=== PATIENT | male | born 1935 | race Caucasian/White ===

== ENCOUNTER 2016-12-01 16:15 | Inpatient (IN) | payer MEDICARE, OTHER ==
[~2016-12-01] VITALS: Ht 175.3 cm; Wt 72.6 kg
--- NOTE | ~2016-12-01 | CON ---
PATIENT'S NAME: KARMA DENG [facility] AGE: 81 Y [address] ROOM: [id number] [place] [id number] LOCATION: GPCU ADMIT DATE: 12/01/2016 Consultation DISCHARGE DATE: FAMILY PHYSICIAN: NASRIN MONTE MD ATTENDING PHYSICIAN: MAXI JONES DATE OF CONSULTATION: 12/02/2016 REQUESTING PHYSICIAN: Maxi Jones MD. REASON FOR CONSULTATION: End-stage renal failure, patient on hemodialysis. 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 Normally dialyzes Sunday, Sunday, and Sunday through his left upper arm AV fistula. The patient went for a routine dialysis treatment yesterday, and after dialysis, he was noted to have pain and blue discoloration of his left hand. He actually had cold, clammy hand and feeble pulse. He was sent to the emergency room from where he got admitted to the hospital. Dr. Betancourt did evaluate him, and the patient was taken to the OR, and he had ligation of his left upper arm AV fistula after dissection of the cephalic vein. 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 Did have return of radial and ulnar signal of the wrist right after the procedure. Postoperatively, the patient was noted to be bradycardic. He was thereafter diagnosed with hypothyroidism by TSH. I have been asked to see him because he is a dialysis patient. REVIEW OF SYSTEMS: GENERAL: He denies any fever or chills. He is tired. HEENT: Denies any sore throat or sinus congestion. CARDIOVASCULAR: Denies any chest pain or dyspnea on exertion. RESPIRATORY: Denies any shortness of breath, cough, or wheezing. GASTROINTESTINAL: Denies any abdominal pain, nausea, or vomiting. GENITOURINARY: Denies any dysuria. MUSCULOSKELETAL: He has some discomfort in his left hand. SKIN: Denies any rash or pruritus. IMMUNOLOGIC: Denies any allergies or hay fever. PAST MEDICAL HISTORY: End-stage renal failure, on hemodialysis; dementia; diabetes mellitus; coronary artery disease; hypertension; pneumonia; hyperlipidemia; depressive illness; hypothyroidism; rectal bleed; and chronic constipation. PATIENT'S NAME: KARMA DENG [facility] AGE: 81 Y [address] ROOM: [place] [address] LOCATION: GPCU ADMIT DATE: 12/01/2016 Consultation DISCHARGE DATE: FAMILY PHYSICIAN: NASRIN MONTE MD ATTENDING PHYSICIAN: MAXI JONES PAST SURGICAL HISTORY: 1. Left upper arm primary brachiocephalic AV fistula placement in August 2011. 2. Ligation of left upper arm AV fistula. 3. Appendectomy. 4. Coronary artery bypass grafting. 5. Inguinal hernia repair. 6. Left heart catheterization with stent placement in 2006. ALLERGIES: NO KNOWN DRUG ALLERGIES. MEDICATIONS: 1. Aspirin 81 mg a day. 2. Lipitor 80 mg a day. 3. Calcium acetate 667 mg 4 tablets 3 times a day with food. 4. Klonopin 0.5 mg twice a day. 5. Plavix 75 mg a day. 6. Colace 100 mg every day. 7. Lexapro 20 mg a day. 8. [place]-3 fatty acid 1000 mg every day. 9. Lactulose 20 g every day. 10. Levothyroxine 175 mcg a day. 11. Namenda 10 mg q.h.s. 12. Metoprolol tartrate 6.25 mg twice a day. 13. Nitrostat 0.4 mg sublingual p.r.n. chest pain. 14. Protonix 40 mg a day. 15. Ranexa 500 mg every day. 16. MiraLAX p.r.n. 17. Acetaminophen p.r.n. 18. Midodrine 10 mg 2 three days a week on dialysis days. 19. Claritin 10 mg every day. 20. Amiodarone 200 mg a day. 21. Imdur 15 mg a day. SOCIAL HISTORY: The patient lives at home with his who is his primary care provider. He has [id number] history of smoking, quit smoking in 2008. No history of alcohol or illicit drugs. FAMILY HISTORY: No family history of kidney disease or dialysis. PHYSICAL EXAMINATION: GENERAL APPEARANCE: An 81-year-old white male, sitting in the hospital chair, PATIENT'S NAME: KARMA DENG [facility] AGE: 81 Y [address] ROOM: [place] [address] LOCATION: GPCU ADMIT DATE: 12/01/2016 Consultation DISCHARGE DATE: FAMILY PHYSICIAN: NASRIN MONTE MD ATTENDING PHYSICIAN: MAXI JONES not in acute distress. VITAL SIGNS: Temperature 97.7, pulse is 64, systolic blood pressure 94 and diastolic 52. HEENT: Head is normocephalic. Pupils are round and equal. Normal eyelids, and pale conjunctivae. Oral cavity clear. Loss of tooth. Moist mucosa. NECK: Trachea is central. No thyromegaly. Unable to evaluate jugular venous pulsation. CARDIAC: Heart sounds are audible in all the areas without any gallop or murmur. There is no pericardial rub. Pulses regular in rhythm. LUNGS: Bilaterally clear to auscultate anteriorly. No intercostal retraction. ABDOMEN: Soft and nontender. EXTREMITIES: The patient has warm left upper extremity, and he has positive radial pulse. NEUROLOGICAL: He is alert and grossly nonfocal. LABORATORY DATA: WBC 7.1, hemoglobin 13.3, hematocrit 47.2, and platelet count of 215. Glucose 87, BUN 23, creatinine 4.6, sodium 140, potassium 4.2, chloride 101, bicarbonate 32, and calcium 9.2. Magnesium 2.7. GFR of 12. TSH is 23.2. ASSESSMENT: 1. 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 2. End-stage renal failure, on hemodialysis. 3. Diabetes mellitus. 4. Hypertension. 5. Dementia. 6. Coronary artery disease. 7. Hypothyroidism. PLAN: The patient does not have any dialysis access at this time. We will have to refer him to Interventional Radiology for putting in a tunneled dialysis catheter Sunday morning prior to his dialysis. I would like to thank Dr. Jones for allowing me to participate in this patient's care. M MD PETRA STEVEN/gonzalez PATIENT'S NAME: KARMA DENG [facility] AGE: 81 Y [address] ROOM: [place] [address] LOCATION: GPCU ADMIT DATE: 12/01/2016 Consultation DISCHARGE DATE: FAMILY PHYSICIAN: NASRIN MONTE MD ATTENDING PHYSICIAN: MAXI JONES /[id number] d: 12/02/16 1336 t: 12/20/16 1547, CONSULTATION REPORT
--- NOTE | ~2016-12-01 | DS ---
PATIENT'S NAME: KARMA DENG [facility] AGE: 81 Y [address] ROOM: [address] [place], [place] [address] LOCATION: GPCU ADMIT DATE: 12/01/2016 Discharge Summary DISCHARGE DATE: 12/05/2016 FAMILY PHYSICIAN: Fabien Felix MD ATTENDING PHYSICIAN: Maxi Morales PRIMARY DIAGNOSES: 1. Left upper extremity ischemia. 2. Bradycardia. 3. Hypotension. 4. Severe hypothyroidism. CHRONIC CONDITIONS: Include end-stage renal disease, restlessness, and dementia. PRINCIPAL PROCEDURES: Done for the patient include left upper extremity AV graft ligation and tunnel catheter placement. LABS ON ADMISSION: Troponin less than 0.040, CPK 27. On admission, WBC was 7.1, was stable throughout hospital stay and prior to discharge, it was 7.4; H and H on admission was 13.3/47.2, prior to discharge was 12.5/43.3; platelet was 215, prior to discharge was 225 and was stable. Sodium on admission was 146, remained stable throughout the hospital stay; potassium on admission was 4.2, prior to discharge was 4.1; creatinine was 4.6 on admission, prior to discharge was 6.0; bicarb was 32, prior to discharge was 27. Phosphorus was 2.4. TSH was 23.2, free T4 was 1.1. CK-MB was 1.5. MICROBIOLOGY: None was indicated. RADIOLOGY: Chest x-ray is reported as cardiac silhouette is within normal limits. Lungs are clear with no focal infiltrate, pleural effusion, or pneumothorax. Insertion of an ultrasound-guided placement of right internal jugular vein tunneled dialysis catheter. HOSPITAL COURSE: For history of present illness, please take a look at H and P, which was done by Dr. Morales. The patient was admitted to inpatient into PCU. On the first day of admission, the patient had his left upper extremity AV graft ligated by Dr. Betancourt. Procedure was well tolerated by the patient without any intraoperative or postop complication. During his hospital stay, he did also develop some bradycardia for which Cardiology was consulted on and after the patient was reviewed by Cardiology, they stopped his metoprolol and reduced his amiodarone and also his Namenda as well was stopped and they felt possibly the bradycardia may also be secondary to his hypothyroidism, so his Synthroid was also titrated upwards by the Hospitalist team. With progression in his hospital stay, his bradycardia improved and he subsequently got his PATIENT'S NAME: KARMA DENG [facility] AGE: 81 Y [address] ROOM: [id number] [place], [place] [address] LOCATION: GPCU ADMIT DATE: 12/01/2016 Discharge Summary DISCHARGE DATE: 12/05/2016 FAMILY PHYSICIAN: Fabien Felix MD ATTENDING PHYSICIAN: Maxi Morales dialysis catheter placed, on which day he had his dialysis done. During his dialysis, which is unusual for the patient, he was less lethargic and hypotensive which resolved following the use of midodrine. A day after his dialysis, the patient continued to remain medically stable and he was discharged back to [facility]. DISCHARGE INSTRUCTIONS: Include the patient is to follow with Dr. Betancourt in the next 2-3 weeks for vein mapping and also is to follow with Dr. Knott in the next 2 weeks. MEDICATIONS ON DISCHARGE: Include, 1. Tylenol 650 mg p.o. daily. 2. Tylenol 325 mg p.o. every 6 hours p.r.n. 3. Amiodarone 100 mg p.o. daily, dose change. 4. Aspirin 81 mg p.o. daily. 5. Lipitor 80 mg p.o. q.h.s. 6. Calcium acetate 667 mg, 2001 mg p.o. 3 times daily with meals. 7. Klonopin 0.5 mg p.o. twice daily. 8. Plavix 75 mg p.o. daily. 9. Colace 100 mg p.o. twice daily. 10. Lexapro 30 mg p.o. daily. 11. Imdur 50 mg p.o. daily. 12. Lactulose 20 mg p.o. daily. 13. Claritin 10 mg p.o. daily. 14. Midodrine 20 mg p.o. 3 times daily 3 days per week. 15. Fish oil 1 g p.o. daily. 16. Synthroid 200 mcg p.o. daily, dose change. 17. Protonix 40 mg p.o. daily. 18. MiraLAX 17 g p.o. daily. 19. Ranexa 500 mg p.o. daily. 20. Milk of magnesium hydroxide 30 mL p.o. q.24 hours p.r.n. 21. Nitrostat 0.4 mg sublingual every 15 minutes. 22. Kayexalate 30 mg p.o. daily p.r.n. 23. Dulcolax 10 mg rectally q.24 hours. 24. Temple 5/325 two tablets p.o. every 4 hours p.r.n. MD BHAVNA MARINELLI/gonzalez /[id number] d: 12/06/16 0154 t: 12/06/16 1725, DISCHARGE SUMMARY
--- NOTE | ~2016-12-01 | OR ---
PATIENT'S NAME: KARMA DENG [facility] AGE: 81 Y [address] ROOM: [address] [address] [facility] AD[facility] DATE: 12/01/2016 OR/Procedure Report DISCHARGE DATE: FAMILY PHYSICIAN: NASRIN MONTE MD ATTENDING PHYSICIAN: VILMA JONES SURGEON: Greg Betancourt MD SENIOR DB2 SYSTEMS PROGRAMMER: DATE OF PROCEDURE: 12/01/2016 PREOPERATIVE DIAGNOSIS: Left arm steal syndrome secondary to AV fistula. GEODETIC COMPUTATOR: Bhaskar Herman. ANESTHESIA: General. ESTIMATED BLOOD LOSS: 5 mL. OPERATIVE FINDINGS: Return of radial and ulnar signal of the wrist. DESCRIPTION OF PROCEDURE: The patient was brought to the operating room, placed supine on the operative table. Prepped and draped in a sterile manner. Preoperative time-out was performed. We made a transverse incision 2 cm proximally. Antecubital fossa dissected down. Incised the fascia. Dissected out the cephalic vein in a 360-degree fashion. Ligated it with a single 3-0 silk tie. We used Doppler signal to check the return of the radial and ulnar signal which was present. We then irrigated the wound and then reapproximated the skin with interrupted 4-0 nylons. The patient tolerated the procedure well, transferred to recovery room and back to the floor. GREG BETANCOURT MD FKM/modl /[id number] d: 12/02/16 0104 t: 12/04/16 1519, OPERATIVE SUMMARY
--- NOTE | ~2016-12-01 | HP ---
PATIENT'S NAME: KARMA DENG [facility] AGE: 81 Y [address] ROOM: [place] [address] LOCATION: GPCU ADMIT DATE: 12/01/2016 History & Physical DISCHARGE DATE: FAMILY PHYSICIAN: NASRIN MONTE MD ATTENDING PHYSICIAN: VILMA JONES DATE OF SERVICE: PRIMARY CARE PHYSICIAN: Ankur Herman MD CHIEF COMPLAINT: Left upper extremity fistula problems. HISTORY OF PRESENT ILLNESS: This is an 81-year-old male with a history of end-stage renal disease, currently on hemodialysis. The patient has a left upper extremity fistula. The patient was undergoing dialysis today, and there were some problems with the fistula. The patient then had developed left arm steal syndrome secondary to the AV fistula. The patient was then brought to [facility] and was taken to the OR by Dr. Betancourt. Dr. Betancourt consulted the hospitalist team after left arm fistula ligation for medical management. At the time of my examination on Med-Surg unit, the patient is status post left arm fistula ligation. He is currently comfortably resting. He denies any chest pain or shortness of breath, denies any lightheadedness. He denies any abdominal pain, diarrhea, or constipation. He denies any pain in his left upper extremity. Sensation is intact bilateral upper extremities. The patient also has good strength bilateral upper extremities. He denies any other complaints at this point of time. REVIEW OF SYSTEMS: A 10-point review of systems was done and was otherwise negative except as mentioned above. HOME MEDICATIONS: Per MAR. FAMILY HISTORY: Mother had unknown cancer. PAST SURGICAL HISTORY: 1. Five-vessel CABG. 2. Appendectomy. [facility] AGE: 81 Y [address] ROOM: [place] [address] LOCATION: GPCU ADMIT DATE: 12/01/2016 History & Physical DISCHARGE DATE: FAMILY PHYSICIAN: NASRIN MONTE MD ATTENDING PHYSICIAN: VILMA JONES 3. Inguinal hernia repair. 4. Tonsillectomy and adenoidectomy. 5. ECT x5. 6. Left upper arm AV fistula placement with ligation today. PAST MEDICAL HISTORY: 1. History of TIA after CABG. 2. Dementia. 3. CAD, status post CABG. 4. Hypertension. 5. Dyslipidemia. 6. Congestive heart failure. 7. Ischemic heart disease. 8. Arthritis. 9. History of GI bleed. 10. GERD. 11. Bipolar depression. SOCIAL HISTORY: [id number]-dpls smoking history reported. He is a former smoker, quit in 2004. No alcohol history reported. PHYSICAL EXAMINATION: VITAL SIGNS: Temperature 98.0, pulse 59 and irregular, respirations 18, blood pressure 135/71, saturation 96% on 2 L nasal cannula oxygen. GENERAL: The patient is resting comfortably. He is alert and oriented x3. Follows all commands. Moves all extremities. HEENT: Head: Normocephalic, atraumatic. Pupils are equal, round, reactive to light. Extraocular muscles are intact. Nares clear. Throat clear. Mucous membranes moist. NECK: Supple. No nuchal rigidity. HEART: Irregular rhythm. LUNGS: Clear to auscultation bilaterally. ABDOMEN: Soft, nontender, nondistended. Bowel sounds present. EXTREMITIES: No clubbing, cyanosis, or edema. Left upper extremity has an AV fistula. Sensation intact bilateral upper and bilateral lower extremities. NEUROLOGIC: The patient is alert and oriented x3. Follows all commands. Moves all extremities. Sensation intact bilateral upper and lower extremities. Left upper extremity is warm to touch. Strength 4+/5 bilateral upper and lower extremities. DIAGNOSTIC STUDIES: Chest x-ray was done and showed no acute cardiopulmonary abnormality. EKG was done and showed sinus bradycardia with a first-degree AV block and rate of 55 beats per minute. CPK 27, troponin I less than 0.04. CBC showed a white PATIENT'S NAME: KARMA DENG [facility] AGE: 81 Y [address] ROOM: [id number] [place], [place] [address] [facility] AD[facility] DATE: 12/01/2016 History & Physical DISCHARGE DATE: FAMILY PHYSICIAN: NASRIN MONTE MD ATTENDING PHYSICIAN: VILMA JONES count of 7.1, hemoglobin 13.3, hematocrit 47.2, platelets 215. BMP showed sodium 140, potassium 4.2, chloride 101, bicarb 32, BUN 20, creatinine 4.6, glucose 87, calcium 9.2, mag 2.7, anion gap 11.2, GFR 12. PT 10.2, INR 1.0, and PTT 27. CK-MB 1.5. Free T4 1.1, TSH 23.2. ASSESSMENT AND PLAN: An 81-year-old male presenting with left upper extremity fistula problem and steal syndrome. 1. Left upper extremity fistula problem and steal syndrome. The patient was taken to the OR by Dr. Betancourt for left upper extremity fistula ligation. The patient is status post procedure and is resting comfortably currently. Further plan per Dr. Betancourt. 2. History of hypertension. I will continue him on his home medications. 3. History of diabetes mellitus. Continue home medication. 4. History of congestive heart failure. Continue home medication. 5. History of paroxysmal atrial fibrillation. I will place him on telemetry for now. EKG has been done. Monitor for now. 6. History of dementia. 7. Dyslipidemia. Continue statin. 8. Ischemic cardiomyopathy. The patient is on Plavix. Continue Plavix. 9. Depression. Continue Lexapro. 10. Hypothyroidism. Continue levothyroxine. 11. Deep vein thrombosis prophylaxis per Vascular Surgery. SCD to legs currently, the patient is not on long-term anticoagulation. CODE STATUS: DNR/DNI discussed with the patient and family at the time of admission. VILMA JONES MD MT/gonzalez /[id number] D: [id number] T: [id number] HISTORY & PHYSICAL
--- NOTE | ~2016-12-01 | ER ---
PATIENT'S NAME: KARMA DENG [facility] AGE: 81 Y [address] ROOM: [place] [address] LOCATION: [facility] ADMIT DATE: 12/01/2016 ER/Outpatient Report DISCHARGE DATE: FAMILY PHYSICIAN: NASRIN MONTE MD ATTENDING PHYSICIAN: VILMA JONES Admission date and time documented in the medical record. I saw the patient at 1620 hours. CHIEF COMPLAINT: Left hand and forearm pain and coldness. HISTORY OF PRESENT ILLNESS: The patient is an 81-year-old male, who was about [facility] through dialysis when he developed a cold left forearm and hand along with accompanying pain. The patient has a fistula in the left upper arm. He does have end-stage renal failure, on hemodialysis on Sunday, Sunday, and Sunday. He does have peripheral vascular disease along with coronary artery disease. Denies any chest pain, shortness of breath. No lightheadedness, dizziness, syncope, or near syncope. No fall or trauma. No recent colds, coughs, flus, fever, chills, or sweats. No headache, eyes, ears, nose, throat, neck, or spine pain. No abdominal pain, nausea, vomiting, diarrhea, or urinary incontinence. No stool incontinence. Other than the left forearm and hand, he has no other joint or muscle swelling, redness, or pain. No skin eruptions or rash. The patient does have a history of hypothyroidism, tnm-sulhtse-[id number] diabetes mellitus. He has a history of TIA, CVA, but no seizure disorder. No psychosis but does have anxiety, depression, and some dementia. HOME MEDICATIONS: See attached medication list. ALLERGIES: NONE. SOCIAL HISTORY: Nonsmoker, nondrinker. SIGNIFICANT PAST MEDICAL HISTORY: Atherosclerotic ischemic heart disease; coronary artery disease; dementia; anxiety; depression; paroxysmal atrial fibrillation; CVA; TIA; hypertension; congestive heart failure; end-stage renal failure, on hemodialysis, on Sunday, Sunday, and Sunday; remote tobacco abuse; peripheral vascular disease; dyslipidemia; hypothyroidism; benign prostatic hypertrophy; lung nodule. OPERATIONS: PATIENT'S NAME: KARMA DENG [facility] AGE: 81 Y [address] ROOM: [place] [address] LOCATION: [facility] ADMIT DATE: 12/01/2016 ER/Outpatient Report DISCHARGE DATE: FAMILY PHYSICIAN: NASRIN MONTE MD ATTENDING PHYSICIAN: VILMA JONES Appendectomy, cardiac catheterization with PTCA and stenting; cholecystectomy, 6-vessel coronary bypass graft, inguinal herniorrhaphy. REVIEW OF SYSTEMS: All systems reviewed by me are negative with the exception of those discussed in the history of present illness. PHYSICAL EXAMINATION: VITAL SIGNS: Blood pressure 100/48, pulse 82, respirations 18, temperature 98 tympanic, O2 saturation on room air is 93%. HEAD: Normocephalic. EYES, EARS, NOSE, THROAT: Clear. Mucous membranes moist. NECK: Negative. SPINE: Negative. LUNGS: Clear. HEART: Regular. ABDOMEN: Soft, nontender. Good bowel tones. EXTREMITIES: The patient has a cold left forearm and hand. At the fistula and above, the arm is warm. Decreased pulses. Decreased capillary refill. SKIN: Otherwise, skin is clear. NEUROVASCULAR: Appears to be intact. IMPRESSION: Cold left forearm and hand with pain. The patient has a proximal fistula for hemodialysis. Etiology undetermined whether there is some type of clot or arterial abnormality. PLAN: I did talk with Dr. Bennett, civil engineer helper, who had called Dr. Betancourt, vascular surgeon. Dr. Betancourt is coming to the emergency room to see the patient. We will proceed on his recommendations. MD RUSTAM LOMBARDO/modl /[id number] d: 12/01/16 2327 t: 12/02/16 1814, OUTPATIENT REPORT
--- NOTE | ~2016-12-01 | CON ---
PATIENT'S NAME: KARMA DENG [facility] AGE: 81 Y [address] ROOM: [place] [address] LOCATION: GPCU ADMIT DATE: 12/01/2016 Consultation DISCHARGE DATE: FAMILY PHYSICIAN: NASRIN MONTE MD ATTENDING PHYSICIAN: VILMA JONES DATE OF CONSULTATION: 12/02/2016 REASON FOR CARDIOLOGY CONSULT: Bradycardia. HISTORY OF PRESENT ILLNESS: This is an 81-year-old male who normally follows cardiology care with Dr. Nick Knott. He is currently admitted under the Hospitalist Service as well as Vascular Surgery after his left hand experienced ischemia due to an AV fistula complication. Specifically, he experienced left arm steal syndrome due to his AV fistula, and he is currently status post a left arm fistula ligation. He has a previous history of coronary artery disease with a remote coronary artery bypass grafting in 1996 as well as coronary artery stenting post CABG. Most recent stent placed 8 years ago. He also has a history of paroxysmal atrial fibrillation, on amiodarone. He has had end-stage renal disease for the last 5 years and undergoes hemodialysis. He also has a history of dementia. At the time of this consult, he is resting comfortably in bed without complaints of presyncope or syncope, chest pain, palpitations, shortness of breath, dyspnea on exertion, nausea, vomiting, diarrhea, or fever. PAST MEDICAL HISTORY: 1. Coronary artery disease. 2. Paroxysmal atrial fibrillation. 3. End-stage renal disease. 4. Dementia. 5. Hypertension. 6. Dyslipidemia. 7. Hypothyroidism. 8. Rbkr-ay-ywznbykr pulmonary hypertension. PAST SURGICAL HISTORY: 1. Coronary artery bypass grafting in 1996. 2. Coronary artery stenting, last time being 8 years ago. 3. Appendectomy. 4. Inguinal hernia repair. 5. Tonsillectomy. 6. Adenoidectomy. 7. ECT treatments for depression. PATIENT'S NAME: KARMA DENG [facility] AGE: 81 Y [address] ROOM: [place] [address] LOCATION: GPCU ADMIT DATE: 12/01/2016 Consultation DISCHARGE DATE: FAMILY PHYSICIAN: NASRIN MONTE MD ATTENDING PHYSICIAN: VILMA JONES 8. Left arm fistula creation in 2010. FAMILY HISTORY: The patient's mother had a history of cancer. SOCIAL HISTORY: The patient is a former cigarette smoker. He smoked for a total of 40 years and quit smoking in 2004. He denies alcohol or illicit drug use. CURRENT MEDICATIONS: 1. Aspirin 81 mg p.o. daily. 2. Colace 100 mg p.o. twice daily. 3. Amiodarone 200 mg p.o. daily. 4. Enulose 30 mL p.o. daily. 5. Fish oil 1000 mg p.o. daily. 6. Imdur 15 mg p.o. daily. 7. Klonopin 0.5 mg p.o. twice daily. 8. Levothyroxine 175 mcg p.o. daily. 9. Lexapro 30 mg p.o. daily. 10. Lipitor 80 mg p.o. daily in the evening. 11. MiraLax 17 g p.o. daily. 12. Namenda 10 mg p.o. daily in the evening. 13. PhosLo 2001 mg p.o. 3 times daily. 14. Plavix 75 mg p.o. daily. 15. Protonix 40 mg p.o. daily. 16. Ranexa 500 mg p.o. daily. 17. Tylenol 650 mg p.o. daily. MEDICATION ALLERGIES: No known medication allergies. REVIEW OF SYSTEMS: Pertinent positive review of systems listed in the HPI. All other review of systems evaluated and negative. PHYSICAL EXAMINATION: VITAL SIGNS: Temperature 97.7, pulse 59, respirations 24, blood pressure 126/60, and O2 saturation 93% on room air. The patient weighs 72 kg. SKIN: [place], warm, and dry. EYES: Sclerae are clear. No xanthelasma. ENT: Oral mucosa is pink and moist. NECK: No jugular venous distention or carotid bruits. CHEST: Respirations are even and unlabored. Lungs are clear to auscultation. HEART: Regular rate and rhythm. Normal S1 and S2. There is a slight irregularity at times. No murmurs, rubs, or gallops. PATIENT'S NAME: KARMA DENG [facility] AGE: 81 Y [address] ROOM: [address] [address] [facility] ADMIT DATE: 12/01/2016 Consultation DISCHARGE DATE: FAMILY PHYSICIAN: NASRIN MONTE MD ATTENDING PHYSICIAN: VILMA JONES ABDOMEN: Soft and nontender. MUSCULOSKELETAL: Equal muscle strength to upper and lower extremities bilaterally against resistance. EXTREMITIES: Peripheral pulses palpable. Of note, he has a strong 2+ left- sided brachial pulse, but does have a noted weak radial pulse, but his hand is warm. No clubbing, cyanosis, or edema. PSYCHIATRIC: Alert and oriented. Mood and affect are appropriate. IMPRESSION AND PLAN: Per Dr. Izaguirre. Bradycardia. Possibly a combination of hypothyroidism, amiodarone, metoprolol, and Namenda. The patient does not need a pacemaker at this time. It is unclear when his last levothyroxine dose was adjusted. We do recommend holding his amiodarone at this time. His troponin level is negative, and recommend checking a TSH level. We will continue to monitor, evaluate, and treat as appropriate. Thank you for this consult. The care of this patient will be assumed again by Dr. Nick Knott on Sunday, December 04, but we will continue to follow him through the weekend and treat as appropriate. Thank you for allowing [facility] to interact in the care of this patient. NATALIA LORENZANA APRN FOR PO-ROSALVA IZAGUIRRE MD DEH/gonzalez /[id number] d: 12/02/16 1510 t: 12/27/16 0923, CONSULTATION REPORT
[~2016-12-01 16:15] MED LIST changes: -AMIODARONE HCL100 MG PO; -IMDUR30 MG PO; -LEVOTHROID (S200 MCG PO; -MIRALAX17 GM PO
[2016-12-01] MEDS ORDERED: AMIODARONE HCL100 MG PO (21:26)
[2016-12-01] MEDS ORDERED: IMDUR30 MG PO (21:29)
[2016-12-01] MEDS ORDERED: MIRALAX17 GM PO (21:33)
[2016-12-01] MEDS ORDERED: DULCOLAX10 MG R (21:39)
[2016-12-01] MEDS ORDERED: TYLENOL325 MG PO (21:43)
[2016-12-01] MEDS ORDERED: MILK OF MA400 MG/5 M PO (21:43)
[2016-12-01 23:02] LABS: BASOPHIL # 0.1 K/uL (0.0-0.2); BASOPHIL % 1.7 %; EOSINOPHIL # 0.2 K/uL (0.0-0.5); EOSINOPHIL % 2.3 %; HEMOGLOBIN 13.3 g/dL (11.0-16.0); IMMATURE GRANULOCYTE % 0.6 %; LYMPHOCYTE # 1.3 K/uL (0.8-4.0); LYMPHOCYTE % 17.9 %; MCHC 28.2 gm/dL (32.0-36.5); MONOCYTE # 0.9 K/uL (0.0-1.0); MONOCYTE % 12.9 %; MPV 9.6 fl (9.4-12.4); NEUTROPHIL # (ANC) 4.6 K/uL (1.4-9.0); NEUTROPHIL % 64.6 %; NRBC % 0 /100WBC (0-0.00); PLATELET COUNT 215 K/uL (150-450); RDW-CV 16.2 % (11.9-14.6); WBC 7.1 K/uL (4.0-11.0)
[2016-12-01 23:03] LABS: HEMATOCRIT 47.2 % (33.0-50.0); MCH 26.8 pg (27.0-34.0); RBC 4.97 M/uL (3.50-5.50)
[2016-12-01 23:12] LABS: PROTIME 10.2 SECONDS (9.6-11.1); PTT 27 SECONDS (25-32)
[2016-12-01 23:13] LABS: ANION GAP 11.2 (10.0-19.0); CALCIUM 9.2 mg/dL (8.5-10.5); POTASSIUM 4.2 mMol/L (3.7-5.1)
[2016-12-01 23:18] LABS: CREATININE 4.6 mg/dL (0.6-1.3); MAGNESIUM 2.7 mg/dL (1.3-2.6)
[2016-12-02 00:59] LABS: CPK 27 IU/L (35-332)
--- NOTE | 2016-12-02 01:28 | NUR ---
Recieved a transfer patient from [facility] [place] 0045. Eliza ERICKSON gave report to Clint ERICKSON. Initial vitals were BP 172/74, HR 54, temp 97.7 resp 16 sat 96% on 2L.
--- NOTE | 2016-12-02 02:06 | NUR ---
Patient arrived from postop via cart after having a ligation of fistula in left arm. Patient alert and oriented but very tired. IV in left forearm infusing NS at 10ml/hr. Initial vitals WNL with the exception of a heart rate of 59. Post op nurse stated that he had been bradycardic post operatively. Patient reports significant pain only when left arm is touched. Admitting physician is Dr. Betancourt.
--- NOTE | 2016-12-02 02:19 | NUR ---
Transfered patient to PCU room 7947. Report given to Clint Arce RN.
--- NOTE | 2016-12-02 02:20 | NUR ---
Notified patient's via telephone of patient's transfer to PCU, room 4530.
--- NOTE | 2016-12-02 05:21 | NUR ---
Significant Event: A/O x3. Forgetful at times. Afebrile. Pain in left arm when palpated. VSS on 2L. SBP 120-140s. HRs in 50s. Atropine at bedside if needed for HRs <30. Left arm red with some open sores. Dressing on anterior upper left arm with drainage marked. Doppler left arm pulse. Anuria. Follow up: Possible new dialysis line placement on Sunday.
[2016-12-02 08:12] LABS: CPK 20 IU/L (35-332)
--- NOTE | 2016-12-02 16:27 | NUR ---
Significant Event: Patient A/O x 3. Very pleasant and cooperative with cares. Full lift. Uses oqq-hr-qcigh lift at [facility]. VSS on RA. HR 50-60's. SBP 94-130's. Denies pain except when left arm moved. RAC PIV SL. at bedside throughout the day. 1000 ml fluid restriction. Follow up: Continue as per plan of care. Plan for tunneled dialysis line placement on Sunday and possible new fistula placement. Monitor heart rates. Dressing to Left upper arm can be changed tomorrow.
--- NOTE | 2016-12-03 04:55 | NUR ---
Significant events: Pt A/O to place and self. No complaints of pain. VSS. HR 40-60's. L) upper arm site CDI, shadow drainage marked. 1+ pulse in affected arm, red/pinkish in color. Repositioned Q2H. No urine output, pt states is normal. Slept most of shift. Atropine at bedside for HR <30. Plan for tunneled line placement soon.
--- NOTE | 2016-12-03 17:05 | NUR ---
Significant Event: Patient is often only oriented to person. Knows he is in [place] at times. Full lift. Uses ruf-bg-peche lift at longterm. VSS on RA throughout the day. SBP 121-169. HR's 40-50's. Stopped amiodarone. L)upper arm dressing changed and now C/D/I. Pulses and color better in that arm. RAC PIV SL. Denies pain except when touching right arm. PT/OT worked with patient today. Follow up: Plan for tunneled dialysis line tomorrow. Continue as per plan of care.
--- NOTE | 2016-12-04 02:57 | NUR ---
Significant Event:Patient alert, oriented to self. Disoriented to time, sometimes disorient to place. Up with full lift. No c/o pain. Left arm reddish in color. Pulse palpable to left radius. 1000ml fluid restrict. Anuria. Dialysis line probable placement today and then to dialysis. Bradycardic with hr's right around 50. Some htn with sbp of 164. PIV to rt ac, SL. Follow up:Diaylsis line placement today.
[2016-12-04 11:56] LABS: BASOPHIL # 0.1 K/uL (0.0-0.2); BASOPHIL % 1.4 %; EOSINOPHIL # 0.1 K/uL (0.0-0.5); EOSINOPHIL % 1.9 %; HEMATOCRIT 43.3 % (33.0-50.0); HEMOGLOBIN 12.5 g/dL (11.0-16.0); IMMATURE GRANULOCYTE % 0.3 %; LYMPHOCYTE # 1.6 K/uL (0.8-4.0); LYMPHOCYTE % 21.7 %; MCH 26.5 pg (27.0-34.0); MCHC 28.9 gm/dL (32.0-36.5); MCV 91.9 fl (83.0-98.0); MONOCYTE # 0.6 K/uL (0.0-1.0); MONOCYTE % 8.7 %; MPV 10.2 fl (9.4-12.4); NEUTROPHIL # (ANC) 4.9 K/uL (1.4-9.0); NRBC % 0 /100WBC (0-0.00); PLATELET COUNT 225 K/uL (150-450); RBC 4.71 M/uL (3.50-5.50); RDW-CV 15.9 % (11.9-14.6); WBC 7.4 K/uL (4.0-11.0)
[2016-12-04 12:12] LABS: ALBUMIN 2.6 gm/dL (3.5-5.0); ANION GAP 12.1 (10.0-19.0); PHOSPHORUS 2.4 mg/dL (2.5-4.9); POTASSIUM 5.1 mMol/L (3.7-5.1)
[2016-12-04 12:14] LABS: CALCIUM 11.2 mg/dL (8.5-10.5)
--- NOTE | 2016-12-04 15:39 | NUR ---
Introduced self and role of care management to pt's . She states he is at [facility] and plan is to return when ready. She states they take him to dialysis M-W- at 1100. She did ask if he would qualify for a skilled medicare stay and I explained it looks like he is observation status but will need to look at the chart before I can confirm everything. She did understand. Will continue to follow. =
--- NOTE | 2016-12-04 20:26 | NUR ---
Significant Event: Patient Alert to self and location. Unable to state month, will say that he is in a building but unaware he is in the hospital. Full lift transfer. Patient off the unit this shift for a scheduled procedure, placement of a dialysis catheter. Patient in dialysis after procedure, returned to the unit at 1650. VS stable on arrival. Patient had 1.5L removed during dialysis. Takes pills 1 at a time with water. Patient cooperative. at bedside. Possil home 12/05/16.
--- NOTE | 2016-12-05 04:10 | NUR ---
Significant Event: VSS, PT AFEBRILE. RESTING IN BED AND REPOSITIONED NEEDED. PT RESTLESS TONIGHT AND MOVING AROUND IN BED. 3 SIDE RAILS UP, AT BEDSIDE. STATES THAT THIS IS THE MOST RESTLESS HE'S BEEN AFTER HAVING DIALYSIS. PT ABLE TO STATE FIRST AND LAST NAME AND THAT IS ALL. CAN ANSWER SOME QUESTIONS APPROPRIATELY BUT IS MOSTLY CONFUSED. BENADRYL GIVEN AT BEDTIME. DIALYSIS CATHETER DRESSING CHANGED. CONTINUES ON RA WITH SATS IN THE UPPER 90'S. PT POSSIBLY GOING BACK TO [facility] TODAY. Follow up:
[2016-12-05 10:14] LABS: CALCIUM 10.2 mg/dL (8.5-10.5)
[2016-12-05 10:16] LABS: ANION GAP 14.1 (10.0-19.0); POTASSIUM 4.1 mMol/L (3.7-5.1)
--- NOTE | 2016-12-05 10:45 | NUR ---
I got a call from nursing pt can return back to [facility] today. I called [employer] and faxed orders and time set up for 1200. I the ncalled and she asked about his restlessness and I explained I have not seen him but will have her talk with nursing. She stated she will be up to see him so not to worry. I called Annie and she stated he is fine and has not been restless this am and will update when she gets here.
--- NOTE | 2016-12-05 13:00 | NUR ---
Patient Alert to self and Birthday, unable to state current month or year. Patient full lift transfer for nursing personnel. Up in the chair this shift. VS stable, on RA. No complaints of pain this shift. Takes medication 1 at a time with sips of water. Last BM 12/04/16. Patient on a low sodium diet with 1000 ml fluid restriction. Pulses to L) arm present. L) arm warm. Patient able to wiggle fingers, and has movement to the left upper extremity. Patient has new dialysis catheter to the R) chest. Dressing to be changed this PM. Patient pleasant and cooperative with cares.
--- NOTE | 2016-12-05 20:29 | NUR ---
PATIENT ALERT TO SELF, CAN STATE AND THAT HE IS AT THE HOSPITAL. VS STABLE, ON RA. FULL LIFT TRANSFER. PATIENT DISMISSED TO [facility] AT 1230. PRISON TRANSPORT PROVIDED FOR PATIENT. TRANSFER PACKET PROVIDED FOR FACILITY. PATIENT LEFT THE UNIT VIA WHEELCHAIR WITH [employer], ACCOUNTANT SYSTEMS AND . ALL BELONGINGS WITH . PATIENT PLEASANT AND COOPERATIVE WITH CARES.
[2016-12-25] MEDS ORDERED: LEVOTHROID (S200 MCG PO (10:32)
[2016-12-25] MEDS ORDERED: NORCO 5-325 TA1 EACH PO (10:36)
== END 2016-12-05 12:30 | DRG 252 ==
LOC: GMED 16:15 → GMSU 19:42 → GPCU 19:42 → GMSU 19:42 → GPCU 12-02 01:02
PROVIDERS: Family Medicine; Hospitalist; Internal Medicine Nephrology; ADMIT Internal Medicine
PROC: 05LF0ZZ Occlusion of Left Cephalic Vein, Open Approach (ICD-10-PCS; principal; 2016-12-01)
DX: T82.898A Other specified complication of vascular prosthetic devices, implants and grafts, initial encounter (principal); N18.6 End stage renal disease; I13.2 Hypertensive heart and chronic kidney disease with heart failure and with stage 5 chronic kidney disease, or end stage renal disease; I25.810 Atherosclerosis of coronary artery bypass graft(s) without angina pectoris; I25.9 Chronic ischemic heart disease, unspecified; F03.90 Unspecified dementia, unspecified severity, without behavioral disturbance, psychotic disturbance, mood disturbance, and anxiety; I50.9 Heart failure, unspecified; I25.5 Ischemic cardiomyopathy; I48.0 Paroxysmal atrial fibrillation; E78.5 Hyperlipidemia, unspecified; K21.9 Gastro-esophageal reflux disease without esophagitis; F32.89 Other specified depressive episodes; E03.9 Hypothyroidism, unspecified; E11.9 Type 2 diabetes mellitus without complications; Z79.82 Long term (current) use of aspirin; Z87.891 Personal history of nicotine dependence; Z90.49 Acquired absence of other specified parts of digestive tract; Z79.899 Other long term (current) drug therapy
CPT/HCPCS: C1750; J0461; J0690; J1644; P9047

== ENCOUNTER → 2016-12-01 | Outpatient (CLI) | payer MEDICARE, OTHER ==
[~2016-12-01] MED LIST: 0.9% SODIUM CHLO3 ML INH; 8 HOUR650 MG PO; ALBUTEROL2.5 MG/0.5 INH; AMIODARONE HCL100 MG PO; ASPIR 8181 MG PO; BENZONATATE200 MG PO; CLARITIN10 MG PO; COLACE100 MG PO; DULCOLAX10 MG R; ENULOSE10 GM/15 M PO; FISH OIL 1,0001 EACH PO; GUAIFENESIN-CODE5 ML PO; IMDUR30 MG PO; KLONOPIN0.5 MG PO; LEVAQUIN500 MG; LEVOTHROID (S200 MCG PO; LEVOTHROID (SY25 MCG PO; LEXAPRO20 MG PO; LIPITOR80 MG PO; LOPRESSOR25 MG PO; MIDODRINE HCL10 MG PO; MIDODRINE HCL5 MG PO; MILK OF MA400 MG/5 M PO; MIRALAX17 GM PO; MUCINEX DM ER1 EAC1 PO; NAMENDA10 MG PO; NITROSTAT0.4 MG SL; NORCO 5-325 TA1 EACH PO; NORVASC2.5 MG PO; PHOSLO667 MG PO; PLAVIX75 MG PO; PROTONIX40 MG PO; PROVENTIL OR V6.7 GM INH; RANEXA ER500 MG PO; SPS15 GM/60 M PO; TYLENOL325 MG PO; ZOFRAN8 MG PO
== END | disposition disaster alternative care site (69) ==
LOC: GAMB 16:02
DX: R53.1 Weakness (principal); I96 Gangrene, not elsewhere classified; R20.2 Paresthesia of skin
CPT/HCPCS: A0425; A0429

== ENCOUNTER → 2016-12-19 | Outpatient (CLI) | payer MEDICARE, OTHER ==
[~2016-12-19] MED LIST changes: +AMIODARONE HCL100 MG PO; +IMDUR30 MG PO; +LEVOTHROID (S200 MCG PO; +MIRALAX17 GM PO
[2016-12-19 13:46] LABS: HEMATOCRIT 42.5 % (33.0-50.0); HEMOGLOBIN 12.2 g/dL (11.0-16.0); MCH 25.4 pg (27.0-34.0); MCHC 28.7 gm/dL (32.0-36.5); MCV 88.5 fl (83.0-98.0); MPV 10.4 fl (9.4-12.4); RBC 4.8 M/uL (3.50-5.50); RDW-CV 15.7 % (11.9-14.6); WBC 7.2 K/uL (4.0-11.0)
[2016-12-19 14:02] LABS: ALK PHOS 84 IU/L (33-138); ALT 14 IU/L (12-78); AST 18 IU/L (10-40); TOTAL PROTEIN 7.2 g/dL (6.0-8.4)
[2016-12-19 14:08] LABS: TOTAL BILIRUBIN 0.4 mg/dL (0.0-1.5)
== END ==
LOC: LCNC 13:39
PROVIDERS: Internal Medicine Interventional Cardiology
DX: I95.3 Hypotension of hemodialysis (principal); Z79.899 Other long term (current) drug therapy

== ENCOUNTER → 2016-12-27 | Outpatient (CLI) | payer MEDICARE, OTHER ==
[2016-12-27 19:20] LABS: BASOPHIL # 0.1 K/uL (0.0-0.2); BASOPHIL % 0.9 %; EOSINOPHIL # 0.2 K/uL (0.0-0.5); EOSINOPHIL % 2.3 %; HEMATOCRIT 41.3 % (33.0-50.0); HEMOGLOBIN 11.6 g/dL (11.0-16.0); IMMATURE GRANULOCYTE % 0.5 %; LYMPHOCYTE # 1.2 K/uL (0.8-4.0); LYMPHOCYTE % 14.2 %; MCH 24.3 pg (27.0-34.0); MCHC 28.1 gm/dL (32.0-36.5); MCV 86.6 fl (83.0-98.0); MPV 10.7 fl (9.4-12.4); NEUTROPHIL # (ANC) 6.2 K/uL (1.4-9.0); NEUTROPHIL % 71.1 %; NRBC % 0 /100WBC (0-0.00); PLATELET COUNT 219 K/uL (150-450); RBC 4.77 M/uL (3.50-5.50); RDW-CV 15.9 % (11.9-14.6); WBC 8.7 K/uL (4.0-11.0)
[2016-12-27 19:27] LABS: INR - (THERAPEUTIC) 0.96 (0.92-1.07); PROTIME 10.1 SECONDS (9.8-11.4)
== END ==
PROVIDERS: Internal Medicine Nephrology
DX: Z99.2 Dependence on renal dialysis (principal); N18.6 End stage renal disease; I47.2 Ventricular tachycardia; A41.89 Other specified sepsis

== ENCOUNTER 2016-12-28 10:19 | Inpatient (IN) | payer MEDICARE, OTHER ==
[~2016-12-28] VITALS: Ht 152.4 cm; Wt 76.7 kg
--- NOTE | ~2016-12-28 | HP ---
PATIENT'S NAME: KARMA DENG [facility] AGE: 81 Y [address] ROOM: [place] [address] LOCATION: [facility] [place] ADMIT DATE: 12/28/2016 History & Physical DISCHARGE DATE: FAMILY PHYSICIAN: NASRIN MONTE MD ATTENDING PHYSICIAN: TORIN MIDDLETON Corrected patient account information 12/28/16 AO DATE OF SERVICE: This is a preoperative evaluation for a tunneled dialysis catheter placement. PHYSICAL EXAMINATION: VITAL SIGNS: Temperature 97.5, pulse 78, systolic blood pressure 120 diastolic 54. HEENT: Head is normocephalic. Eyes: Pupils are round and equal. Normal eyelid and conjunctivae and oral cavity cleared. He has dentures. Moist mucosa. Trachea is central. No thyromegaly. Unable to evaluate jugular venous pulsation. HEART: Sounds are audible in all the areas without any gallop or murmur. There is no pericardial rub. Pulse is regular rate and rhythm. The patient has no thrill or bruit in the left upper arm AV fistula. The patient has a tunneled dialysis catheter in the right internal jugular position with a clean dressing on. ABDOMEN: Soft and nontender. Cannot palpate any liver or spleen. LUNGS: Bilaterally clear to auscultate. No intercostal retraction. EXTREMITIES: There is no clubbing or cyanosis. SKIN: No sign of vasculitis. LYMPHATICS: Did not examine lymphatics. HIGHER PSYCHIATRIC FUNCTION: The patient has advanced dementia. He has issue with his memory. M MD PETRA STEVEN/gonzalez /[id number] Corrected patient account information 12/28/16 AO D: T: HISTORY & PHYSICAL
--- NOTE | ~2016-12-28 | DS ---
PATIENT'S NAME: KARMA DENG [facility] AGE: 81 Y [address] ROOM: [place] [address] LOCATION: GPCU ADMIT DATE: 12/29/2016 Discharge Summary DISCHARGE DATE: 01/04/2017 FAMILY PHYSICIAN: Fabien Felix MD ATTENDING PHYSICIAN: Maxi Morales ADMITTING DIAGNOSES: 1. Acute encephalopathy secondary to hypoglycemia, present on presentation. 2. End-stage renal disease, on dialysis, present on admission. 3. History of coronary artery disease, status post CABG, present on admission. 4. Dementia with behavioral disturbance, present on admission. 5. Paroxysmal atrial fibrillation, present on admission. 6. Right arm brachial artery endarterectomy with bovine pericardial patch with brachiocephalic AV fistula. DISCHARGED DIAGNOSES: 1. Acute encephalopathy secondary to hypoglycemia, present on presentation. 2. End-stage renal disease, on dialysis, present on admission. 3. History of coronary artery disease, status post CABG, present on admission. 4. Dementia with behavioral disturbance, present on admission. 5. Paroxysmal atrial fibrillation, present on admission. 6. Right arm brachial artery endarterectomy with bovine pericardial patch with brachiocephalic AV fistula. PROCEDURE: Right arm brachial artery endarterectomy with bovine pericardial patch and then brachiocephalic AV fistula done on December 28, 2016, by Dr. Betancourt. CONSULTATIONS: Vascular surgery and Nephrology. HISTORY OF PRESENT ILLNESS: The patient presented to our hospital for right arm brachial artery endarterectomy and was found to be hypoglycemia with symptoms of confusion and somnolence. The patient was admitted to the hospital for further workup of acute encephalopathy secondary to hypoglycemia. HOSPITAL COURSE: The patient was initially admitted to our hospital after his procedure. The patient was noted to be somnolent and with hypoglycemia. The patient was given several D50 amps with resolvement of hypoglycemia, but, however, on followup blood glucose check, the patient was noted to have low blood glucose. At one point, the patient was also started on D5 and D10. The patient continued to have low blood glucose level. Workup was done, which includes adrenal insufficiency and C-peptide level. Workup was unrevealing. Also sulfonylurea workup was done. However, the patient does not take any PATIENT'S NAME: KARMA DENG [facility] AGE: 81 Y [address] ROOM: [id number] [place] [id number] LOCATION: GPCU ADMIT DATE: 12/29/2016 Discharge Summary DISCHARGE DATE: 01/04/2017 FAMILY PHYSICIAN: Fabien Felix MD ATTENDING PHYSICIAN: Maxi Morales sulfonylurea and result is not back as of yet. However, on further investigation, the patient was on Ranexa. On few studies, Ranexa has shown to cause hypoglycemia. Ranexa was held. After the Ranexa was held, the patient's blood glucose level was normal. The patient was observed for 2 more days off Ranexa and was found to have euglycemic and with no requirement of D50 or D5 blood glucose. The patient is now discharged in stable condition. We will discontinue Ranexa from his medication list. We will also add Ranexa as part of his allergy to medication. The patient was also noted to have hyperkalemia during the stay, which resolved with dialysis. CONDITION: Stable. DISPOSITION: Back to long-term. DISCHARGE MEDICATIONS: See MAR. DISCHARGE INSTRUCTIONS: Discontinue Ranexa. PENDING STUDY: Serum sulfonylurea level. FOLLOWUP: Follow up with Dr. Pittman and Dr. Betancourt as an outpatient. Greater than 30 minutes was spent on discharge planning. MD SARAI AUSTIN/gonzalez /[id number] d: 01/05/170 t: 01/07/17 1610, DISCHARGE SUMMARY
--- NOTE | ~2016-12-28 | HP ---
PATIENT'S NAME: KARMA DENG [facility] AGE: 81 Y [address] ROOM: [place], [place] [address] LOCATION: [facility] ADMIT DATE: 12/28/2016 History & Physical DISCHARGE DATE: FAMILY PHYSICIAN: NASRIN MONTE MD ATTENDING PHYSICIAN: TORIN MIDDLETON DATE OF SERVICE: REASON FOR EVALUATION: Preoperative evaluation for tunneled dialysis catheter placement. 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 Recently, he lost thrill in his AV fistula and a tunneled dialysis catheter was put in the right internal jugular position. Unfortunately, we could not use his tunneled dialysis catheter yesterday when he went for his dialysis treatment. TPA was injected, but we were unable to establish the flow through the catheter. Therefore, he needs a replacement of his tunneled dialysis catheter. REVIEW OF SYSTEMS: GENERAL: He denies any fever or chills. HEENT: Denies any sore throat or sinus congestion. CARDIOVASCULAR: Denies any chest pain or dyspnea on exertion. RESPIRATORY: Denies any cough or sputum production. GI: Denies any abdominal pain, nausea, or vomiting. : Denies any dysuria or frequency. MUSCULOSKELETAL: Denies any joint pain or swelling. SKIN: Denies any rash or pruritus. IMMUNOLOGIC: Denies any allergies or hay fever. LYMPHATIC: Denies any lymph node enlargement. HEMATOLOGIC: Denies any easy bruising. ENDOCRINE: Denies any heat or cold intolerance. PAST MEDICAL HISTORY: Advanced dementia, end-stage renal failure, on hemodialysis, diabetes mellitus, coronary artery disease, hypertension, lost of thrill in the AV fistula, hyperlipidemia, depressive illness, hypothyroidism, history of rectal bleed, chronic constipation. PAST SURGICAL HISTORY: Left upper arm primary brachiocephalic AV fistula placement August 2011, ligation of the left upper arm AV fistula, appendectomy, coronary artery bypass grafting, inguinal hernia repair, left heart catheterization with stent PATIENT'S NAME: KARMA DENG [facility] AGE: 81 Y [address] ROOM: [place], [place] [address] LOCATION: [facility] [place] ADMIT DATE: 12/28/2016 History & Physical DISCHARGE DATE: FAMILY PHYSICIAN: NASRIN MONTE MD ATTENDING PHYSICIAN: TORIN MIDDLETON placement in 2006. SOCIAL HISTORY: The patient lives at home with his who is his primary caregiver. He has 100-pack a year history of smoking, quit smoking in 2008. No history of using alcohol. FAMILY HISTORY: No family history of kidney disease or dialysis. ALLERGIES: NO KNOWN DRUG ALLERGIES. MEDICATIONS: Current medications include, 1. Aspirin 81 mg a day. 2. Lipitor 80 mg a day. 3. PhosLo 667 mg four tablets 3 times a day with food. 4. Klonopin 0.5 mg twice a day. 5. Plavix 75 mg a day. 6. Colace 100 mg every day. 7. Lexapro 20 mg a day. 8. [place]aver-3 fatty acid 1000 mg every day. 9. Lactulose 20 g every day. 10. Levothyroxine 175 mcg a day. 11. Namenda 10 mg q.h.s. 12. Metoprolol tartrate 6.25 mg twice a day. 13. Nitrostat 0.4 mg sublingual p.r.n. for chest pain. 14. Protonix 40 mg a day. 15. Ranexa 500 mg a day. 16. MiraLAX p.r.n. 17. Acetaminophen p.r.n. 18. Midodrine 10 mg 2 tablets 3 times a week on dialysis day. 19. Claritin 10 mg every day. 20. Amiodarone 200 mg a day. 21. Imdur 15 mg a day. LABORATORY DATA: Blood work from yesterday shows hemoglobin 11.6, hematocrit 41.3, platelet count of 219, PT 10.1, INR 0.9. ASSESSMENT: 1. Nonfunctioning tunneled dialysis catheter. 2. End-stage renal failure, on hemodialysis. 3. Diabetes mellitus. PATIENT'S NAME: KARMA DENG [facility] AGE: 81 Y [address] ROOM: [place], [place] [address] LOCATION: [facility] [place] ADMIT DATE: 12/28/2016 History & Physical DISCHARGE DATE: FAMILY PHYSICIAN: NASRIN MONTE MD ATTENDING PHYSICIAN: TORIN MIDDLETON 4. Hypertension. 5. Dementia. 6. Coronary artery disease. 7. Hypothyroidism. PLAN: I do not see any contraindication for replacing his tunneled dialysis catheter for hemodialysis treatment. His platelet count is adequate. His hemoglobin 11.6. The patient has systolic blood pressure 120 and diastolic 54. He will need to have his dialysis treatment this afternoon after his tunneled dialysis catheter has been placed. The patient is not allergic to surgical tape or contrast. M MD PETRA STEVEN/gonzalez /[id number] D: T: HISTORY & PHYSICAL
--- NOTE | ~2016-12-28 | CON ---
PATIENT'S NAME: KARMA DENG [facility] AGE: 81 Y [address] ROOM: [address] [place], [place] [address] LOCATION: GPCU ADMIT DATE: 12/28/2016 Consultation DISCHARGE DATE: FAMILY PHYSICIAN: NASRIN MONTE MD ATTENDING PHYSICIAN: GREG BETANCOURT DATE OF CONSULTATION: 12/29/2016 REFERRING PHYSICIAN: Greg Betancourt MD REASON FOR CONSULTATION: End-stage renal disease, need for renal replacement therapy. 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 He was getting dialyzed through the tunnelled dialysis catheter placed a few days ago at our hospital; however, the dialysis catheter was not working well. The patient also got a tunnelled dialysis catheter placement yesterday before getting a new AVF placement. The TDC was placed earlier this month because he was noted to have pain in the arm and blue discoloration of the left hand, he actually had cold clammy hand and feeble pulse, and the fistula was taken down because of possible steal syndrome. After the fistula has been taken down, the patient had return of radial and ulnar signal on the Doppler signal. Today, the patient needs dialysis as per his outpatient Sunday, Sunday, Sunday schedule. Seen and examined on dialysis. Apparently doing well. Denies any chest pain, shortness of breath. We are getting trouble while dialyzing through the tunnelled dialysis catheter, as the patient is going in to frequent venous spasm. We were able to take about 250-350 blood flow rate through the tunnelled dialysis catheter today. REVIEW OF SYSTEMS: GENERAL: No fever. No chills or rigor. HEENT: No sore throat. No sinus congestion. CVS: No chest pain. No exertional shortness of breath. No leg swelling. RESPIRATORY: No shortness of breath. No cough. No wheezing. GENITOURINARY: No pain with urination. No increased frequency. No nocturia. GASTROINTESTINAL: No abdominal pain. No abdominal distention. No nausea or vomiting. NEUROLOGIC: No weakness. No seizures. SKIN: No rash. No itching. ALLERGIES: No seasonal allergy. No hayfever. ENDOCRINE: No heat intolerance. No cold intolerance. PSYCHIATRIC: No sadness. No crying spells. No history of panic attack. PAST MEDICAL HISTORY: 1. End-stage renal failure, on hemodialysis. 2. Dementia. 3. Diabetes mellitus. 4. Coronary artery disease. 5. Hypertension. 6. Pneumonia. 7. Hyperlipidemia. 8. Depressive disorder. 9. Hypothyroidism. 10. Rectal bleed. 11. Chronic constipation.PATIENT'S NAME: KARMA DENG [facility] AGE: 81 Y [address] ROOM: [place] [address] LOCATION: GPCU ADMIT DATE: 12/28/2016 Consultation DISCHARGE DATE: FAMILY PHYSICIAN: NASRIN MONTE MD ATTENDING PHYSICIAN: GREG BETANCOURT PAST SURGICAL HISTORY: 1. Left arm primary brachiocephalic fistula placement in August 2011. 2. Ligation of the left arm AV fistula in December 2016. 3. Tunnelled dialysis catheter replacement in December 2016. 4. Appendectomy. 5. Coronary artery bypass grafting. 6. Inguinal hernia repair. 7. Left heart cardiac catheterization with stent placement in 2006. ALLERGIES: NO KNOWN DRUG ALLERGIES. MEDICATIONS: As per MAR. SOCIAL HISTORY: He lives at home with his who is his primary care provider. Almost 100- pack-year history of smoking, stopped smoking in 2008. No history of alcohol or illicit drug use. FAMILY HISTORY: No family history of kidney disease or dialysis. PHYSICAL EXAMINATION: VITAL SIGNS: Blood pressure 110/70, pulse of 86, respiratory rate 18, and afebrile. GENERAL: Not in apparent distress. HEAD: Moist mucous membranes. Bilateral PERRLA, EOMI. NECK: No JVD, thyromegaly, or lymphadenopathy. CVS: S1 and S2 normal. Regular rate and rhythm. No murmur, rub, gallop. CHEST: Bilateral air entry equal. No wheeze or rales. ABDOMEN: Soft, nontender, and nondistended. Bowel sounds present. EXTREMITIES: No cyanosis, clubbing, or jaundice. No dependent edema. MUSCULOSKELETAL: No limitation of range of motion. SKIN: No pallor, cyanosis, or icterus. PORTER SAMPLE CASE: Alert and oriented x3. No gross findings. LABORATORY DATA: Hemoglobin 11.6, WBC 8.7, and platelets 219. Sodium 140, potassium 5.4, BUN 34, creatinine 5.7, bicarbonate 26, chloride 103, and glucose 81. Calcium 8.9, total protein 6.8, albumin 3.1, total bilirubin 0.5, and direct bilirubin 0.1. Phosphorus 2.4. INR 0.96. ASSESSMENT: 1. End-stage renal failure, on hemodialysis as per Sunday, Sunday, and Sunday schedule. 2. History of steal syndrome of the left upper extremity arteriovenous fistula placement, status post fistula ligation. 3. Access issues now on right tunneled dialysis catheter placement. Still undergoing frequent venous spasm. 4. Hypertension. 5. Dementia. 6. Coronary artery disease. 7. Hypothyroidism.PATIENT'S NAME: KARMA DENG [facility] AGE: 81 Y [address] ROOM: [address] [place] [address] LOCATION: GPCU ADMIT DATE: 12/28/2016 Consultation DISCHARGE DATE: FAMILY PHYSICIAN: NASRIN MONTE MD ATTENDING PHYSICIAN: GREG BETANCOURT PLAN: The patient has been seen and examined on dialysis. We agreed on doing dialysis via the right-sided tunnelled dialysis catheter, but we only achieved 250-300 maximum 350 blood flow rate as the patient's vein is undergoing spasm frequently. We tried to reverse the line without much success. This TDC had been placed yesterday by IR. The patient also got an AVF placement yesterday. We need to wait at least for 6-8 weeks before the fistula gets matured. The patient has currently no symptoms now and sleeping quite comfortably on dialysis. We will request the IR to look at the tunnelled dialysis catheter if we can increase some flow rate which will help in the clearance. I would like to thank Dr. Betancourt for allowing me to participate in this patient's care. BRENDON ORTEGA MD /modl /[id number] d: 12/29/[id number] t: 04/30/17 1949, CONSULTATION REPORT
--- NOTE | ~2016-12-28 | CON ---
PATIENT'S NAME: KARMA DENG [facility] AGE: 81 Y [address] ROOM: [place] [address] LOCATION: GPCU ADMIT DATE: 12/29/2016 Consultation DISCHARGE DATE: FAMILY PHYSICIAN: NASRIN MONTE MD ATTENDING PHYSICIAN: VILMA JONES REFERRING PHYSICIAN: Nick Knott MD REFERRING PHYSICIAN: Dr. Burroughs. REASON FOR CONSULT: Chest pain. HISTORY OF PRESENT ILLNESS: This is an 81-year-old gentleman well known to Dr. Knott with a history of paroxysmal atrial fibrillation, systolic heart failure, essential hypertension, and coronary artery disease. He was admitted to the hospital originally on 12/28/2016 for need for renal dialysis cath placement. On 12/31/2016, he was having problems with _ hypoglycemia through the night, and on the morning of 01/01/2017, he was complaining of chest discomfort while he was eating breakfast. He has not had any problems with exertional chest pain, but he is not ambulatory. He had undergone a left heart catheterization on September 22, 2016, and he has had FFR to a 19-year-old vein graft with PCI. He was seen in the clinic on 12/19/2016, and at that time, he was quite hypotensive. He had not complained of any chest pain then. He denies any shortness of breath with this. He denies orthopnea, no palpitations, no lightheadedness, and no dizziness. His initial cardiac enzyme was normal, and he did not have any new EKG changes. PAST MEDICAL HISTORY: 1. Paroxysmal atrial fibrillation. 2. Acute systolic heart failure. 3. Ventricular tachycardia. 4. History of TIA. 5. Hypothyroidism. 6. Essential hypertension. 7. Coronary artery disease with history of CABG in 1996 and recent left heart catheterization in September 2016. 8. Hypotension, on midodrine. 9. Dyslipidemia. 10. History of hyperkalemia. 11. End-stage renal disease, on dialysis. 12. BPH. 13. Dementia with Alzheimer type. 14. Anemia of chronic kidney disease. 15. History of diverticulosis. PATIENT'S NAME: KARMA DENG [facility] AGE: 81 Y [address] ROOM: [place] [address] LOCATION: [facility] ADMIT DATE: 12/29/2016 Consultation DISCHARGE DATE: FAMILY PHYSICIAN: NASRIN MONET MD ATTENDING PHYSICIAN: VILMA JONES 16. Small noncalcified lung nodule. 17. Chronic cholelithiasis and cholecystitis. PAST SURGICAL HISTORY: 1. Coronary artery bypass graft surgery in 1996. 2. Appendectomy in 1958. 3. Inguinal hernia repair. 4. Tonsillectomy and adenoidectomy. 5. Left heart catheterization with stents placed in 2006. 6. Left upper arm AV fistula, 08/2011. 7. Left heart catheterization: REES to the LAD, patent; SVG to the OM with good [id number]-[id number] collaterals. 07/30/2012. 8. Left heart catheterization, 06/25/2013. 9. Left heart catheterization, 07/03/2013. 10. Brachioaxillary arterial angiography and angioplasty of the left axillary artery, 07/03/2013. 11. Left heart catheterization, 09/22/2016. 12. Left arm fistula, 12/05/2016. FAMILY HISTORY: Father and mother both . Mother had cancer. SOCIAL HISTORY: Lives in a intermediate. He has a remote history of tobacco use. Smoked for 60 years 2 packs cigarettes a day, quit in 2009. He is , and they have one son. ALLERGIES: NONE TO MEDICATION. CURRENT MEDICATIONS: 1. Acetaminophen 325 mg 2 tablets every 6 hours. 2. Albuterol sulfate 2.5 mg in 3 mL as needed. 3. Amiodarone 100 mg 1 tablet once a day. 4. Aspirin 81 mg chewable once a day. 5. Atorvastatin calcium 80 mg 1 tablet every day. 6. Clonazepam 0.5 mg 1 tablet twice a day. 7. Clopidogrel 75 mg once a day. 8. Docusate sodium 100 mg b.i.d. 9. Dulcolax 10 mg suppository rectally as needed. 10. Fish oil 1000 mg 1 capsule orally b.i.d. 11. Lactulose 20 g 1/2 tablet once a day. 12. Levothyroxine 50 mcg everyday. 13. Lexapro 20 mg 1/2 tablet orally once a day. 14. Loratadine 10 mg one tablet orally once a day. PATIENT'S NAME: KARMA DENG [facility] AGE: 81 Y [address] ROOM: [address] [place], [place] [address] LOCATION: GPCU ADMIT DATE: 12/29/2016 Consultation DISCHARGE DATE: FAMILY PHYSICIAN: NASRIN MONTE MD ATTENDING PHYSICIAN: VILMA JONES 15. Midodrine 10 mg 2 tablets 3 times a day. 16. MiraLAX 17 g with 8 ounces of water once a day. 17. Nitroglycerin 0.4 mg sublingual as needed p.r.n. 18. [place] 5/325 mg 1 tablet as needed orally every 4 hours. 19. Pantoprazole 40 mg delayed release 1 tablet orally every day. 20. Ranolazine 500 mg extended release, 12 hours, 1 every day. 21. Namenda 10 mg every h.s. These medications were per intermediate notes. REVIEW OF SYSTEMS: GENERAL: There has been no report of fevers, chills, weight loss, or weight gain. HEAD: No history of headache. EYES: No blurred vision or double vision. EARS: No problems with hearing. NOSE: No epistaxis or rhinorrhea. MOUTH: No gingival bleeding. THROAT: Denies sore throat, hoarseness, or difficulty swallowing. PULMONARY: Denies cough or hemoptysis. GASTROINTESTINAL: Negative for nausea, vomiting, or diarrhea. No melena or hematochezia. GENITOURINARY: Negative for dysuria. He is on dialysis. He now has a tunneled catheter in place. ENDOCRINE: He is diabetic, has been having trouble with hypoglycemia. NEUROLOGIC: He does have problems with dementia and confusion. HEMATOLOGIC: He does have anemia of chronic diseases. MUSCULOSKELETAL: He is unable to bear weight, very weak. PHYSICAL EXAMINATION: VITAL SIGNS: He is 70 inches tall, his weight is 159 pounds, blood pressures are 113/65, heart rates are in the 70s. GENERAL: On exam, this is an elderly gentleman, who appears to be in no acute distress, continuing to eat his breakfast. SKIN: Warm, dry, and pink. HEENT: Pupils equal, round, and react briskly to light. EOMs are intact. NECK: Soft and supple. No lymphadenopathy or thyromegaly. JVD is flat. LUNGS: Sounds are clear without evidence of wheezes, rales, or rhonchi. CV: Regular with a normal S1 and S2. There is no murmur, rub, or click. ABDOMEN: Soft. Bowel sounds are present. He has a right tunneled cath placed right subclavian. NEUROLOGIC: He is alert, disoriented to place and time. His gait has not been assessed as he is nonambulatory. His mood is good. He currently is denying any chest pain. LABORATORY DATA: PATIENT'S NAME: KARMA DENG [facility] AGE: 81 Y [address] ROOM: [address] [address] LOCATION: GPCU ADMIT DATE: 12/29/2016 Consultation DISCHARGE DATE: FAMILY PHYSICIAN: NASRIN MONTE MD ATTENDING PHYSICIAN: VILMA JONES CPK 29, troponin is 0.04, CK-MB is 1.5. His chem panel, glucose now is 157, BUN is 15, creatinine is 7.3. Sodium 129, potassium is 5.8, chloride 94. WBC is 6.6, hemoglobin 10.2. ASSESSMENT: 1. Atypical chest pain with his most recent heart catheterization, we will not restress him. We will continue with current medications. His blood pressures have been too soft in the past, add nitrates. We will continue with current medications. 2. Paroxysmal atrial fibrillation. His amiodarone had been discontinued. We are going to resume it at 100 mg p.o. every day. The assessment and plan, history of present illness, and physical exam are per Dr. Krystal Knott. We would like to thank Dr. Burroughs for allowing us to participate in the patient's care. ROB PHILLIPS APRN FOR MD AMILCAR GRIMM/gonzalez /[id number] d: 01/02/172321 t: 01/19/17 0921, CONSULTATION REPORT
--- NOTE | ~2016-12-28 | OR ---
PATIENT'S NAME: KARMA DENG [facility] AGE: 81 Y [address] ROOM: [place] [address] [facility] ADMIT DATE: 12/28/2016 OR/Procedure Report DISCHARGE DATE: FAMILY PHYSICIAN: NASRIN MONTE MD ATTENDING PHYSICIAN: TORIN BETANCOURT SURGEON: Torin Betancourt MD INSIDE METER TESTER: DATE OF PROCEDURE: 12/28/2016 PREOPERATIVE DIAGNOSIS: End-stage renal disease. POSTOPERATIVE DIAGNOSIS: End-stage renal disease. PROCEDURE: Right arm brachial artery endarterectomy with bovine pericardial patch and then brachiocephalic AV fistula. DRY WALL FINISHER: OR staff. ANESTHESIA: General. ESTIMATED BLOOD LOSS: 25 cubic centimeters. OPERATIVE FINDINGS: Good thrill in the fistula. Moderate radial and ulnar signals at the end of the case. DESCRIPTION OF PROCEDURE: The patient was brought into the operating room, placed supine on the operating table, placed under general anesthesia. Prepped and draped in a sterile manner. Preoperative time-out was performed. The patient received preoperative antibiotics. We made a standard incision 2 cm proximal to the antecubital fossa and dissected down the fascia, incised the fascia in a longitudinal manner. Dissected out the brachial artery. We then dissected the cephalic vein in a similar fashion. On inspection of the brachial artery, it was heavily calcified along the length of our incision. We attempted to place clamps after heparinization; however, this fractured the heavily calcified artery. We dissected further in the arm, placed a clamp more distally and a softer patch for the artery. We then made an arteriotomy with an 11 blade and extended it with Horton scissors. We then did an endarterectomy removing a significant amount of plaque from the brachial artery. We then patched the artery with a running 6-0 Oriska suture with a bovine patch. After doing this, we removed the clamps and confirmed that there was still flow distally in the hand and there was no leak from the patch. We then re-clamped the artery again, made a patchotomy, and then did a standard 6-0 Prolene anastomosis from the vein to the artery and attached to the patch. We removed the clamp. There was excellent flow in the fistula with moderate radial ulnar signal and a strong fistula signal. Deep layers PATIENT'S NAME: KARMA DENG [facility] AGE: 81 Y [address] ROOM: [place] [address] [facility] AD[facility] DATE: 12/28/2016 OR/Procedure Report DISCHARGE DATE: FAMILY PHYSICIAN: NASRIN MONTE MD ATTENDING PHYSICIAN: TORIN BETANCOURT were closed with 2-0 and 3-0 Vicryl after reversal of protamine. Thrombin was used locally in the wound. Skin was closed with 4-0 nylon interrupted sutures. The patient tolerated the procedure well and transferred to the recovery room and then up to the floor. The patient was kept for observation due to the repair of the artery. TORIN BETANCOURT MD FKM/modl /[id number] d: 12/29/16 0003 t: 12/30/16 0929, OPERATIVE SUMMARY
[2016-12-28 11:32] LABS: ALBUMIN 3.1 gm/dL (3.5-5.0); ANION GAP 16.4 (10.0-19.0); CALCIUM 8.9 mg/dL (8.5-10.5); POTASSIUM 5.4 mMol/L (3.7-5.1); TOTAL PROTEIN 6.8 g/dL (6.0-8.4)
[2016-12-28 11:35] LABS: CREATININE 5.7 mg/dL (0.6-1.3); TOTAL BILIRUBIN 0.5 mg/dL (0.0-1.5)
--- NOTE | 2016-12-29 00:51 | NUR ---
Patient arrived to PCU from PACU at 1900 post op from new R) arm fistula. Site is dressed with gauze, dressing does have some blood on it. Pulse doppled q2h from R) radial. Patient has IV to L) forearm and new tunneled dilaysis catheter to R) subclavian that was placed today. Hospitalist consulted for medical management. VSS BP 111/59, 98.1 temp, 76bpm, 92% on RA, 20 respirations. Patient is alert and oriented upon arrival, but is forgetful and does have history of dementia.
--- NOTE | 2016-12-29 12:33 | NUR ---
Introduced self and role of care management to patients as he is in dialysis. Patient is a resident at [facility]. He plans on him returning there on discharge. She denies any needs. I did call and update Xochilt LINARES at [facility] of possible discharge today.
[2016-12-29 16:15] LABS: BASOPHIL # 0.1 K/uL (0.0-0.2); BASOPHIL % 1.1 %; EOSINOPHIL # 0.2 K/uL (0.0-0.5); EOSINOPHIL % 3.9 %; IMMATURE GRANULOCYTE % 0.2 %; LYMPHOCYTE # 0.6 K/uL (0.8-4.0); LYMPHOCYTE % 13.5 %; MCH 24.3 pg (27.0-34.0); MCHC 28.6 gm/dL (32.0-36.5); MONOCYTE # 0.6 K/uL (0.0-1.0); MONOCYTE % 12.5 %; NEUTROPHIL # (ANC) 3.2 K/uL (1.4-9.0); NEUTROPHIL % 68.8 %; NRBC % 0 /100WBC (0-0.00); RBC 4.12 M/uL (3.50-5.50); WBC 4.7 K/uL (4.0-11.0)
[2016-12-29 16:16] LABS: PLATELET COUNT 162 K/uL (150-450)
[2016-12-29 16:33] LABS: ALK PHOS 78 IU/L (33-138); AST 23 IU/L (10-40); CALCIUM 7.7 mg/dL (8.5-10.5); CHLORIDE 101 mMol/L (96-110); CO2 28 mMol/L (22-32); CREATININE 3.2 mg/dL (0.6-1.3); SODIUM 137 mMol/L (135-145); TOTAL BILIRUBIN 0.4 mg/dL (0.0-1.5); TOTAL PROTEIN 6.2 g/dL (6.0-8.4)
[2016-12-29 16:34] LABS: ALT < 10 IU/L (12-78); ANION GAP 12.1 (10.0-19.0); BLOOD UREA NITROGEN 14 mg/dL (6-24); ESTIMATED GFR (MDRD EQUATION) 19; POTASSIUM 4.1 mMol/L (3.7-5.1)
--- NOTE | 2016-12-29 18:27 | NUR ---
D:Pateint left for dialysis at 0835. He had 1/2 amp D50% per IV and had D5NS started. Accucheck at 0720-54. Recheck at 0800-151. Dr. Palmer/cory thought it would be ok for him to go to dialysis. While patient in dialysis, Dr. Morales ordered that IVF be dc'd, and give 1 amp D50%- done in dialysis. Accucheck at 0930-122. At 1130 it was checked and ok. Rechecked at 1330-133, at 1430-109. Returned to floor at 1420. Report called at 1345- 300 ml taken off. Patient is alert and oreintated to person and time, knows . P:Post dialysis, monitor accuchecks.
--- NOTE | 2016-12-29 18:45 | NUR ---
Significant Event:Patient having low blood sugars, is not taking any hypoglycemics. At this time is on D5W at 50 ml/hr, had D50% at 1630. No c/o pain. Is confused to place. Had 300 ml removed in dialysis. Has dressing to right forearm- new fistula. Has old drainage to dressing. CT of the head ordered- feels patient is more confused than normal. Accuchecks Q2 hours. Follow up:Monitor for hypoglycemia and do accucchecks Q2h. Back to [place] on Sunday. CT head pending.
--- NOTE | 2016-12-30 05:19 | NUR ---
Significant Event: DENIES ANY PAIN ALL NIGHT. REMAINS IN BED. VERY SHORT WITH STAFF. HE WANTS TO BE LEFT ALONE TO SLEEP. HIS BLOOD SUGAR GOT TO LOW 85. AN ENSURE/ICE CREAM SHAKE ALONG WITH SOME APPLE JUICE WAS GIVEN. HE STAYED STABLE THE REST OF THE NIGHT. PULSE IN R) WRIST DOPPLERED Q2HRS. Follow up:
--- NOTE | 2016-12-30 18:40 | NUR ---
Significant Event:Patient remains disorientated to place. This morning at breakfast had some coughing with breakfast, but none was noted with lunch. Accuchecks are now q4h. Accuchecks have been from 102-128. D5W infusing. Turned down from 50 ml/hr to 30 ml/hr. Does get up set and staff at times, Will try some Zyprexa tonight. Follow up:Monitoring accuchecks
--- NOTE | 2016-12-31 04:52 | NUR ---
Significant Event: ALERT. DISORIENTED TO PLACE/ TIME. FORGETFUL. RESTED IN BED ALL OF SHIFT. TURNED Q 2 HRS SIDE TO SIDE. AFEBRILE. VSS ON RA. DENIES PAIN. IV TO L) HAND HAS D5W AT 30 ML/H. ACCUCHECKS FOLLOWED- -74-82. GAVE JUICE X2. NO BM THIS SHIFT. 0 UOP. NEW FISTULA TO R) ARM. DRESSING INTACT. CAN FEEL THE THRILL AND HEAR THE BRUIT. DOPPLED PULSES IN R) ARM. Follow up: CONTINUE WITH PLAN OF CARE.
[2016-12-31 17:00] LABS: ANION GAP 17.5 (10.0-19.0); CALCIUM 8.1 mg/dL (8.5-10.5); POTASSIUM 5.5 mMol/L (3.7-5.1)
[2016-12-31 17:01] LABS: CREATININE 6.5 mg/dL (0.6-1.3); MAGNESIUM 2.7 mg/dL (1.8-2.6)
--- NOTE | 2016-12-31 19:14 | NUR ---
Significant event: Alert, oriented to person and time. Confused at times, wants to go home, or believes he needs to go help his friend Forrest with a job. Called to talk with patient, helped for a while. R) arm fistual bruit/thrill. IV gtt dextrose d/c'd. Now giving 1 amp of dextrose with each accu-check. BG has been 80, 147, & 76. Patient has phymosisMD made aware and also notified of purulent yellow drainage when pushing on site. Eating 50-100% of meals. K+ 5.5, aware, orders to treat. Blood cultures x 2 this shift. Afebrile. Follow Up: Continue current POC.
[2017-01-01 03:28] LABS: BASOPHIL % 0.6 %; EOSINOPHIL # 0.1 K/uL (0.0-0.5); EOSINOPHIL % 1.4 %; HEMATOCRIT 35.8 % (33.0-50.0); HEMOGLOBIN 10.2 g/dL (11.0-16.0); IMMATURE GRANULOCYTE % 0.3 %; LYMPHOCYTE # 0.7 K/uL (0.8-4.0); LYMPHOCYTE % 9.9 %; MCH 24.1 pg (27.0-34.0); MCHC 28.5 gm/dL (32.0-36.5); MCV 84.4 fl (83.0-98.0); MONOCYTE # 0.6 K/uL (0.0-1.0); MONOCYTE % 8.8 %; MPV 10.1 fl (9.4-12.4); NEUTROPHIL # (ANC) 5.2 K/uL (1.4-9.0); NRBC % 0 /100WBC (0-0.00); PLATELET COUNT 150 K/uL (150-450); RBC 4.24 M/uL (3.50-5.50); RDW-CV 16.6 % (11.9-14.6); WBC 6.6 K/uL (4.0-11.0)
[2017-01-01 03:49] LABS: ANION GAP 19.8 (10.0-19.0); CREATININE 7.3 mg/dL (0.6-1.3); POTASSIUM 5.8 mMol/L (3.7-5.1)
--- NOTE | 2017-01-01 06:20 | NUR ---
Significant Event: Patient is alert, oriented to person. Repositioned in bed this shift. Potassium increased. Insulin/D50 protocol given x3. Kayexalate given x3. No bowel movement. Patient currently with q30 minute accuchecks. Give 1 amp D50 if glucose less than 100. Patient confused throughout night. Remains on room air. Blood pressures taken in left leg. Right arm fistula with dressing loose. Positive bruite and thrill noted. Follow up: Accuchecks, dialysis today.
[2017-01-01 08:38] LABS: ANION GAP 19.1 (10.0-19.0); CALCIUM 7.7 mg/dL (8.5-10.5); POTASSIUM 5.1 mMol/L (3.7-5.1)
[2017-01-01 08:55] LABS: CPK 29 IU/L (35-332)
[2017-01-01 08:56] LABS: CREATININE 7.4 mg/dL (0.6-1.3)
--- NOTE | 2017-01-01 19:38 | NUR ---
Significant Event: Alert and oriented to self only. Able to state he is in [place] but not sure where. Room Air. SBP 113 and 153. HR 70's and 80's. Dialysis from 0845 to 1445. 1.4 L removed during dialysis. Right tunnel subclavian for dialysis. Peripheral IV right forearm, saline locked. Fistula to left upper arm. 4 hour accuchecks. Pleasant and cooperative with cares. Follow up:
--- NOTE | 2017-01-02 04:40 | NUR ---
Significant Event: DISORIENTED TO TIME AND PLACE. DROWSY MOST OF THE SHIFT. WOULD OPEN EYES TO VOICE. RESTED IN BED ALL OF SHIFT. TURNED Q 2 HRS SIDE TO SIDE. DENIES PAIN. IV TO L) FA SL. FISTULA TO R) ARM OPEN TO AIR. EDGES APPROXIMATED AND SCABBED AND HEALING WELL. + BRUIT AND THRILL NOTED. NO URINE OUTPUT. NO BM. ONLY ATE BITES OF SUPPER AND DINT DRINK MUCH THIS SHIFT. ACCUCHECKS FOLLOWED 95-79-82. GAVE DEXTROSE 1 AMPULE X1 AND SOME APPLE JUICE. Follow up: CONTINUE WITH PLAN OF CARE.
[2017-01-02 09:43] LABS: CALCIUM 7.7 mg/dL (8.5-10.5); PHOSPHORUS 5.6 mg/dL (2.5-4.9)
[2017-01-02 09:45] LABS: CREATININE 4.5 mg/dL (0.6-1.3)
--- NOTE | 2017-01-02 13:07 | NUR ---
A-SCREENED D/T LOS S/P NEW R)ARM FISTULA ON 12/29. DIALYSIS ON MWF. HAD DIALYSIS YESTERDAY; 1.4 L REMOVED. HX OF DEMENTIA. DISORIENTED TO TIME/PLACE. HT: 70 IN. WT: 70.5 KG. IBW 75 KG. 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 PO INTAKE HAS BEEN REFUSALS-100% EST NUTR NEEDS: [id number] KCALS (30-35 KCALS/KG IBW) 90-105 GM PROTEIN (1.2-1.4 GM/KG IBW) 1 ML FLUID PER KCAL D-AT NUTRITION RISK W/INADEQUATE NUTRIENT INTAKE R/T ALTERED MENTAL STATUS, POOR APPETITE AEB INTAKE RECORDS, CHART REVIEW. I-START ENSURE ENLIVE TID W/MEALS M/E-GOAL: PO INTAKE >/=50% BY NEXT F/U 1)F/U PO INTAKE, SUPPLEMENT, AND POC IN 3-5 DAYS 2)ASSIST NEEDED
--- NOTE | 2017-01-02 16:28 | NUR ---
Significant event: Drowsy this shift, zyprexa d/c'd. Oriented to person. Lungs clear/diminished. Bowel sounds hyperactive, held colace per patient request. R) fistula open to air, bruit/thrill. HR 60's. SBP 120-140's, home dose of amiodarone added today. RA. BG has been 73, 109, 75. Given dextrose IV once this AM for 0700 BG, refused lunch today, given juice for 1500 BG level. Code status changed to DNR/DNI. at bedside today. Follow Up: Continue current POC
--- NOTE | 2017-01-03 03:38 | NUR ---
Significant Event: A/O to person. Drowsy, confused at times. Afebrile. Denied pain. VSS on RA. SBP 100-120s. HRs 60-70s. LS clear/dim. Rt arm fistula incision open to air, bruit and thrill present. L)arm old fistula site with tape strips. Blood pressures take on lower left leg. BS 79-123. Pt refused supper and sips of water. Slept most of shift. Follow Up: continue to monitor per plan of care.
[2017-01-03 05:56] LABS: ALBUMIN 2.8 gm/dL (3.5-5.0); ANION GAP 15.8 (10.0-19.0); CALCIUM 7.9 mg/dL (8.5-10.5); PHOSPHORUS 7.6 mg/dL (2.5-4.9); POTASSIUM 3.8 mMol/L (3.7-5.1)
[2017-01-03 05:59] LABS: CREATININE 6.1 mg/dL (0.6-1.3)
--- NOTE | 2017-01-03 18:59 | NUR ---
Significant Event: TO HD TODAY, REMOVED 1L. VSS AND RA. DENIES PAIN. REPOSITIONED Q2H WHILE ON THE FLOOR. BS 70 AND 89, EATS BREAKFAST AND LARGE LUNCH THIS AFTERNOON WHEN RETURNED FROM HD. UPDATED ON POC. SMALL BM X1 THIS EVENING. Follow up: CONTINUE PLAN OF CARE; BACK TO [facility].
--- NOTE | 2017-01-04 03:51 | NUR ---
Patient alert/oriented to self and sometimes place. VSS on RA. Hemodiaylsis line to rt upper chest, MWF. Lungs clear. Bowel sounds present 2bms this shift, 1LG void. ACCU q4hrs 74-112. Refused supper but did have a ensure. Take meds one at a time with ensure. Possible dismissal to [facility] today.
--- NOTE | 2017-01-04 11:08 | NUR ---
Patient okay to transfer to [facility]. Alert, disoriented to time/place (normal for patient). Hr 60-70's. SBP 110-130's. Afebrile. On RA, oxygen saturation upper 90's. Lungs clear/dim. R) fistula working, bruit/thrill positive. Old L) site fistula no longer working, steri-strips. Had small BM today. Has R) subclavian hemodialysis catheter. Up Heavy 2 assist. Checking blood glucose every 4 hours, has not needed dextrose for 24 (+) hours. Encouraging patient to eat and drink glucerna shakes. BG at 0700 was 84, at 1100 was 119. Dentures placed this morning. at bedside and updated on transfer.
--- NOTE | 2017-01-04 11:44 | NUR ---
Called and updated [facility] at [facility] that patient has discharge orders. Transport time set up for 12:30. Dr Brizuela and Greer notified. I also updated patient and his . They are in agreement with discharge to [facility]. Orders faxed.
== END 2017-01-04 12:45 | DRG 628 ==
LOC: GSDC 10:19 → GPCU 10:19 → GSDC 12-29 15:00 → GPCU 12-29 15:00
PROVIDERS: Family Medicine; Internal Medicine; Internal Medicine Nephrology; ADMIT Surgery Vascular Surgery
PROC: 03U Upper Arteries, Supplement (ICD-10-PCS; principal; 2016-12-28)
PROC: 03C70ZZ Extirpation of Matter from Right Brachial Artery, Open Approach (ICD-10-PCS; principal; 2016-12-28)
PROC: 03170ZD Bypass Right Brachial Artery to Upper Arm Vein, Open Approach (ICD-10-PCS; principal; 2016-12-28)
PROC: 5A1D60Z (ICD-10-PCS; 2017-01-01)
DX: E11.649 Type 2 diabetes mellitus with hypoglycemia without coma (principal); G93.40 Encephalopathy, unspecified; I12.0 Hypertensive chronic kidney disease with stage 5 chronic kidney disease or end stage renal disease; N18.6 End stage renal disease; I95.9 Hypotension, unspecified; T82.898A Other specified complication of vascular prosthetic devices, implants and grafts, initial encounter; I48.0 Paroxysmal atrial fibrillation; K80.10 Calculus of gallbladder with chronic cholecystitis without obstruction; E11.22 Type 2 diabetes mellitus with diabetic chronic kidney disease; Z99.2 Dependence on renal dialysis; E87.5 Hyperkalemia; I25.10 Atherosclerotic heart disease of native coronary artery without angina pectoris; T46.995A Adverse effect of other agents primarily affecting the cardiovascular system, initial encounter; E78.5 Hyperlipidemia, unspecified; G30.9 Alzheimer's disease, unspecified; F02.80 Dementia in other diseases classified elsewhere, unspecified severity, without behavioral disturbance, psychotic disturbance, mood disturbance, and anxiety; R07.89 Other chest pain; R45.1 Restlessness and agitation; E03.9 Hypothyroidism, unspecified; K59.09 Other constipation; F32.9 Major depressive disorder, single episode, unspecified; Z79.02 Long term (current) use of antithrombotics/antiplatelets; Z87.891 Personal history of nicotine dependence; Z79.82 Long term (current) use of aspirin; Z95.1 Presence of aortocoronary bypass graft
CPT/HCPCS: C1750; C1769; G0480; J0610; J0690; J1644; J2720; J7030; J7042; J7060; P9047